=== PATIENT | female | born 1960 | race Caucasian/White ===

== ENCOUNTER → 2020-10-06 | Emergency (ER) | payer OTHER ==
[~2020-10-06] VITALS: Ht 154.9 cm; Wt 98.0 kg
[~2020-10-06] MED LIST: CEPH500C PO; DIPH,PERTUSS(ACELL),TET VAC/PF 0.5 ML SYRINGE. VAX IM ONE; LIDOCAINE 1% Multi-Dose 20 ML VIAL. IJ ONE
[2020-10-06 15:07] VITALS: BP 180/102
--- NOTE | 2020-10-06 15:14 | PHYS DOC ---
Past History Alcohol Use: None Adult General Chief Complaint Chief Complaint: LACERATION/AVULSION HPI HPI Patient is a 60-year-old female presenting from work via EMS for a fall. Reports she was turning around in the bathroom when she lost her footing and fell. In the process of falling, she reports trying to hold onto a trash can but her hands slipped and she subsequently suffered a laceration to her right posterior tricep area. She did not fall down and hit her head, no loss of consciousness reported. She reported immediate bleeding that was nonpulsatile, she immediately applied pressure with wet paper towels and hemostasis achieved after approximately 2 minutes. She does admit she is on Plavix for heart stents, no other blood thinners. She has no changes in motor or sensory or neuro function of right upper extremity. Tetanus is out of date Review of Systems Review of Systems Fourteen body systems of review of systems have been reviewed. See HPI for pertinent positives and negative responses, other bass all other systems are negative, non-pertinent or non-contributory Current Medications Current Medications Current Medications Medications (Trade) Dose Ordered Sig/Ewelina Start Time Stop Time Status Last Admin Dose Admin Diphtheria/ Pertussis/Tetanus Vacc (ADACEL TDap SYRINGE) 0.5 ml ONCE ONCE 10/06/20 14:30 10/06/20 14:31 DC 10/06/20 14:56 0.5 ML Lidocaine HCl 20 ml 1X ONCE 10/06/20 14:30 10/06/20 14:31 DC Allergies Allergies Allergies Coded Allergies Type Severity Reaction Last Updated Verified No Known Drug Allergies 10/06/20 No Physical Exam Physical Exam Constitutional: Well developed, well nourished, no acute distress, non-toxic appearance. HENT: Normocephalic, atraumatic, bilateral external ears normal, oropharynx moist, no oral exudates, nose normal. Eyes: PERRLA, EOMI, conjunctiva normal, no discharge. Neck: Normal range of motion, no tenderness, supple, no stridor. Cardiovascular: Heart rate regular, sinus rhythm, no murmurs rubs or gallops Lungs & Thorax: Bilateral breath sounds clear to auscultation Abdomen: Bowel sounds normal, soft, no tenderness, no masses, no pulsatile masses. Nonsurgical abdomen, no peritoneal signs Skin: Warm, dry, no erythema, no rash. 7 cm L-shaped laceration to right posterior tricep involving subcutaneous tissue without muscle/tendon involvement, no foreign body Back: No tenderness, no CVA tenderness. Extremities: No tenderness, no cyanosis, no clubbing, ROM intact, no edema. Neurologic: Alert and oriented X 3, grossly normal motor & sensory function, no focal deficits noted. Psychologic: Affect normal, judgement normal, mood normal. Current Patient Data Vital Signs Vital Signs Date Time Temp Pulse Resp B/P (MAP) Pulse Ox O2 Delivery O2 Flow Rate FiO2 10/06/20 15:07 97.9 76 16 180/102 98 Vital Signs Date Time Temp Pulse Resp B/P (MAP) Pulse Ox O2 Delivery O2 Flow Rate FiO2 10/06/20 15:07 97.9 76 16 180/102 98 EKG EKG [] Radiology/Procedures Radiology/Procedures [] Heart Score C/O Chest Pain: No Risk Factors: Risk Factors: DM, Current or recent (<one month) smoker, HTN, HLP, family history of CAD, obesity. Risk Scores: Risk Factors: DM, Current or recent (<one month) smoker, HTN, HLP, family history of CAD, obesity. Course & Med Decision Making Course & Med Decision Making Vital stable. HPI physical examination and comprehensive ER work-up n onconcerning for any emergent or surgical issues Tetanus updated. Complex wound closure without foreign body or concerning musc le or tendon involvement. Initially thought to layered closure would be indicated but after formal irrigation and evaluation of wound, wound sutured up well with a total of x16 sutures Wound and laceration care advised. Joint decision to start antibiotics given extent of laceration and dirty trash can. Strict return precautions discussed with good verbalization by patient, all questions and concerns addressed prior to ER discharge Dragon Disclaimer Dragon Disclaimer This electronic medical record was generated, in whole or in part, using a voice recognition dictation system. Laceration Repair Lac Repair Indication: Laceration Procedure: The patient was placed in the appropriate position and anesthesia around the complex deep 7 cm laceration administered using a total of 8 cc 1% lidocaine. The area was then with alcohol prep pad and wound cleanser and evaluated for muscle, tendon and foreign bodies all of which were unremarkable. The laceration was closed using a total of x16 simple interrupted sutures using Prolene 4.0. The wound area was then dressed with appropriate covering and wound instructions were discussed. Total repaired wound length: 7 cm Other Items: None The patient tolerated the procedure well. Complications: None. Departure Departure: Impression: Primary Impression: Laceration of arm, right, complicated Disposition: 01 HOME / SELF CARE / HOMELESS Condition: STABLE Patient Instructions: Laceration Care, Adult Additional Instructions: You were seen for a laceration. Keep the area clean and dry. You should return to the ED or your PCP office to get your sutures removed in 7-10 days. You had a total of 16 sutures placed so ensure you account for all when removed. Return to the ED immediately if you develop any signs of infection like increased pain, redness, fever, or purulent (pus) drainage. Do not take baths, submerge the wound, or use a hot tub until your stitches are removed and the wound is healed. Scripts Cephalexin (KEFLEX) 500 Mg Capsule 1 CAP PO TID for LACERATION for 7 Days, #21 CAP Prov: MANA RENNER DO 10/06/20 MANA RENNER DO Oct 06, 2020 15:14
== END ==
LOC: ER 14:10
DX: S41.111A Laceration without foreign body of right upper arm, initial encounter (principal); W18.09XA Striking against other object with subsequent fall, initial encounter; Y93.89 Activity, other specified; Y92.89 Other specified places as the place of occurrence of the external cause; Y99.8 Other external cause status
CPT/HCPCS: 12002; 12004; 90471; 90715; 99283